=== PATIENT | female | born 1945 | race Caucasian/White ===

== ENCOUNTER 2021-05-22 09:36 | Observation (INO) | payer OTHER, MEDICARE ==
--- OUTSIDE RECORDS SUMMARY | 2021-05-22 09:40 | XMS REPORT | Continuity of Care Document ---
:1945 Author Organization [facility] t Address [address] [place] [address] Care Team Providers Name Role Phone Wang, N Attending Clinician Unavailable Lucia Garcia Attending Clinician Unavailable Wang, Allan Admitting Clinician Unavailable Physician, Primary or Family Admitting Clinician Unavailabl e Payers Payer Name Policy Type Policy Number Effective Date Expiration Date S ource Problems This patient has no known problems. Allergies, Adverse Reactions, Alerts Allergy Allergy Status Severity Reaction(s) Onset Inactive Treating Comm ents Source Name Type Date Date Clinician Sulfa DA Active SV RASH, GI, [facility] (Sulfona HIVES 2-08 [place] [facility] 00:00: [facility] 00 dic ics) [facility] Sulfa DA Active SV RASH, GI, [facility] (Sulfona HIVES 1-07 [place] [facility] 00:00: [place] [facility] 00 Regiona ics) [facility] Medications This patient has no known medications. Procedures Procedure Date / Time Performed Performing Clinician Suma de la torre [id number] 2021-04-25 00:00:00 GOYRO [facility] Or [facility] Encounters Start End Encounter Admission Attending Care Care Encounter Source Date/Time Date/Time Type Type Clinicians Facility Department ID 2021-04-25 2021-04-26 Inpatient EL Wang, HCATO ADMI [id number] [facility] 05:25:00 13:16:00 Nate [id number] [facility] 2021-04-25 2021-04-25 Inpatient EL Wang, HCATO ADMI [id number] [facility] 05:25:00 05:25:00 Nate 68 [facility] 2021-03-24 2021-03-24 Outpatient BRETT DaltonTO 3DAY [id number] [facility] 09:00:00 23:00:00 Nate [id number] [facility] 2021-03-24 2021-03-24 Outpatient BRETT PiñaCL LABO [id number] [facility] 18:12:00 18:12:00 Nate [id number] [facility] 2020-07-12 2020-07-12 Outpatient TRICIA Calderon HCAPM DAYNE [id number] [facility] 12:00:00 12:00:00 [place], [id number] [facility] all[facility] Sanchez [facility] Results Test Description Test Time Test Comments Results Result Comments Source BASIC METABOLIC PANEL 2021-04-26 06:44:00 Test Item Value Reference Range Interpretation Comme nts SODIUM (test code = NA) 142 mmol/L 136-145 N POTASSIUM (test code = K) 4.2 mmol/L 3.5-5.1 N CHLORIDE (test code = CL) 104.0 mmol/L 98-107 N CARBON DIOXIDE (test code = 28.3 mmol/L 21-32 N CO2) GLUCOSE (test code = GLU) 114 mg/dL 70-110 H BLOOD UREA NITROGEN (test code 21 mg/dL 7-18 H = BUN) GLOMERULAR FILTRATION RATE 64.2 >60 U nit of measure: (test code = GFR) mL/min/1.7 3 [id number] Range:Healthy A dults >90 mL/min/1.73 m2 For Chronic Kidney Disease: Stage II Mi ld Decrease in GFR 60-9 0 Stage III Moderate Decrease in GFR 30-59 Stage IV Severe Decrease in GFR 15-29 Stage V Kidney Failure <15 CREATININE (test code = CREAT) 0.86 mg/dL 0.55-1.30 N CALCIUM (test code = CA) 8.5 mg/dL 8.2-10.1 N HGB [id number] 06:00:00 Test Item Value Reference Range Interpretation Comments HEMOGLOBIN (test code = HGB) 12.4 g/dL 12-16 N HEMATOCRIT (test code = HCT) 36.7 % 37-47 L SPECIMEN COMMENT: POD #[id number] 17:08:00 Test Item Value Reference Range Interpretation Comments PROTHROMBIN TIME 11.1 secs 10.1-12.5 N PATIENT (test code = PTP) INTERNATIONAL NORMAL 0.97 <2.0 RECOMME NDED THERAPEUTIC RATIO (test code = RANGE FOR ORAL INR) ANTICOAGULANTTR EATMENT: CONDI TION INRProphylaxis of venous thrombos is in 2.0 - 3.0 high-risk medic al or surgical patientsTreatme nt of venous thrombos is 2.0 - 3.0Prevention o f embolism 2.0 - 3.0Prevention o f recurrent embol ism, or 3.0 - 4. 5 patients with mechanical pros thetic intravascular v avelar IS PATIENT ON ANTICOAGULANTS ? NHas Lab been notified if Patient is on Heparin Drip? NOIf Yes, orderCBC, OCCULT BLOOD, PT every other day NTHROMBOPLASTIN TIME [id number] 17:08:00 Test Item Value Reference Range Interpretation Comments PTT ACTIVATED (test code = APTT) 29.5 secs 24.9-37.0 N IS PATIENT ON ANTICOAGULANTS ? NHas Lab been notified if Patient is on Heparin Drip? NOIf Yes, orderCBC, OCCULT BLOOD, PT every other day NCOMPREHENSIVE METABOLIC [id number] 17:07:00 Test Item Value Reference Range Interpretation Comments SODIUM (test code = 142 mmol/L 136-145 N NA) POTASSIUM (test code = 4.4 mmol/L 3.5-5.1 N K) CHLORIDE (test code = 104.0 mmol/L 98-107 N CL) CARBON DIOXIDE (test 28.1 mmol/L 21-32 N code = CO2) GLUCOSE (test code = 92 mg/dL 70-110 N GLU) BLOOD UREA NITROGEN 21 mg/dL 7-18 H (test code = BUN) GLOMERULAR FILTRATION 64.2 >60 Unit o f measure: RATE (test code = GFR) mL/mi n/1.73 [id number] Range:Healthy Adults >90 mL/min/1.73 m2 For Chronic Kidney Disease: St age II Mild Decrease in GFR 60-90 St age III Moderate Decrease in GFR 30-59 Stage IV Severe Decre ase in GFR 15- 29 Stage V Kidney Failure <15 CREATININE (test code 0.86 mg/dL 0.55-1.30 N = CREAT) TOTAL PROTEIN (test 7.2 g/dL 6.4-8.2 N code = PROT) ALBUMIN (test code = 3.8 g/dL 3.4-5.0 N ALB) GLOBULIN (test code = 3.4 g/dL 2.2-4.2 N GLOB) ALBUMIN/GLOBULIN RATIO 1.1 0.7-2.0 N (test code = A/G) CALCIUM (test code = 9.0 mg/dL 8.2-10.1 N CA) BILIRUBIN TOTAL (test 0.30 mg/dL 0.2-1.00 N code = BILT) SGOT/AST (test code = 30.0 U/L 15-37 N AST) SGPT/ALT (test code = 52.0 U/L 12-78 N Please note new ALT) normal range. ALKALINE PHOSPHATASE 72 U/L 46-116 N TOTAL (test code = ALKP) CBC W/AUTO [id number] 16:32:00 Test Item Value Reference Range Interpretation Comments WHITE BLOOD CELL (test code = WBC) 6.3 K/mm3 5.8-11.0 N RED BLOOD CELL (test code = RBC) 4.54 M/mm3 4.2-5.4 N HEMOGLOBIN (test code = HGB) 13.9 g/dL 12-16 N HEMATOCRIT (test code = HCT) 41.3 % 37-47 N MEAN CELL VOLUME (test code = MCV) 91 fL 80-98 N MEAN CELL HGB (test code = MCH) 30.6 pg 27-34 N MEAN CELL HGB CONCENTRATION (test 33.7 g/dL 30.8-34.1 N code = MCHC) RED CELL DISTRIBUTION WIDTH (test 13.5 % 11-16 N code = RDW) PLT (test code = PLT) 233 K/mm3 130-400 N MEAN PLATELET VOLUME (test code = 10.5 fL 8.9-12.1 N MPV) NEUTROPHIL % (test code = NT%) 61.5 % 45-70 N LYMPHOCYTE % (test code = LY%) 26.0 % 20-40 N MONOCYTE % (test code = MO%) 8.0 % 3-10 N EOSINOPHIL % (test code = EO%) 3.5 % 1-5 N BASOPHIL % (test code = BA%) 0.8 % 0.0-1.1 N NEUTROPHIL # (test code = NT#) 3.85 K/mm3 2.00-7.50 N LYMPHOCYTE # (test code = LY#) 1.63 K/mm3 1.50-4.00 N MONOCYTE # (test code = MO#) 0.50 K/mm3 0.2-0.8 N EOSINOPHIL # (test code = EO#) 0.22 K/mm3 0.04-0.4 N BASOPHIL # (test code = BA#) 0.05 K/mm3 0.02-0.10 N MANUAL DIFF REQUIRED (test code = NO MANUAL DIFF MDIFF) NUCLEATED RED BLOOD CELL (test 0 % 0-0 N code = NRBC)
[2021-05-22 10:48] LABS: SARS-COV-2 RT PCR NEGATIVE (NEGATIVE)
[2021-05-22] MEDS ORDERED: HYDROMORPHONE HCL 1 MG/ML INJ IV PRN (11:58)
[2021-05-22] MEDS ORDERED: LOPERAMIDE HCL 2 MG CAPSULE PO PRN (12:00)
[2021-05-22] MEDS ORDERED: DIPHENHYDRAMINE 25 MG TAB/CAP PO PRN (12:00)
[2021-05-22] MEDS ORDERED: INFLUENZA VACCINE (for 6+ mo) 0.5 ML DOSE IMVAC ONE (12:00)
[2021-05-22] MEDS ORDERED: ONDANSETRON 4 MG (ODT) TAB PO PRN (12:00)
[2021-05-22] MEDS ORDERED: PNEUMOCOCCAL VACCINE 0.5 ML IMVAC ONE (12:00)
[2021-05-22] MEDS ORDERED: POLYETHYL GLY 3350 17 GM/DOSE PO PRN (12:00)
[2021-05-22] MEDS: NACHLORIDE 0.45% 1,000 ML IV SCH (12:07)
[2021-05-22] MEDS: ONDANSETRON 4 MG/2 ML VIAL IV PRN ×2 (12:10→18:39)
[2021-05-22 13:00] VITALS: BMI 33.7
[2021-05-22 13:41] LABS: Absolute Lymphocytes (CBC) 1.2 K/uL (0.7-4.9); Hematocrit 38.8 % (36.0-45.0); Lymphocytes % 19.3 % (15.3-44.8); MPV 7.7 fL (7.6-11.3); RBC Red Blood Cell Count 4.23 M/uL (3.86-4.86)
[2021-05-22 13:49] LABS: Protime INR 1.03
[2021-05-22] MEDS: ACETAMINOPHEN 325 MG TABLET PO PRN (14:09)
[2021-05-22 14:49] LABS: Urine Appearance CLEAR (Clear); Urine Bilirubin NEGATIVE (Negative); Urine Blood NEGATIVE (Negative); Urine Color YELLOW (Yellow); Urine Glucose NEGATIVE (Negative); Urine Protein TRACE (Negative); Urine Specific Gravity >=1.030 (1.005-1.030); Urine Urobilinogen 0.2 mg/dL (0.2-1.0); Urine pH 5.5 (5.0-7.0)
[2021-05-22 14:52] LABS: Urine Microscopic Reflex ORDER UMIC
--- NOTE | 2021-05-22 14:56 | RAD REPORT ---
EXAM DESCRIPTION: MRI - Lumbar Spine Wo Serjio- 05/22/2021 2:43 pm CLINICAL HISTORY: back pain Back pain, radiculopathy COMPARISON: No comparisons FINDINGS: Mild acute- subacute central compression fracture affects L2 vertebral body. There is no p osterior retropulsion or canal stenosis caused by this. No aggressive marrow pattern is observed. The conus medullaris terminates at a normal level. No thickening of the cauda equina or clumping of n erve roots seen. L1-2 level: No significant findings. L2-3 level: No significant findings. L3-4 level: Minimal posterior disc bulge with mild facet and ligamentum flavum hypertrophy. L4-5 level: Mild posterior disc bulge with mild facet and ligamentum flavum hypertrophy. L5-S1 level: No significant findings. IMPRESSION: Mild acute to subacute time frame central compression fracture affects L2 vertebral body . Loss of vertebral body height is estimated at 10%. There is no retropulsion or canal compromise see n.
[2021-05-22 15:00] LABS: Urine Bacteria <20 /HPF (<20); Urine Mucus 1+ /HPF (NONE SEEN); Urine RBC <5 /HPF (NONE SEEN)
--- NOTE | 2021-05-22 15:11 | RAD REPORT ---
EXAM DESCRIPTION: CTAbdomen Pelvis W Contrast - 05/22/2021 3:01 pm CLINICAL HISTORY: Abdominal pain. abdominal pain COMPARISON: Abdomen Pelvis W Contrast dated 09/24/2017 TECHNIQUE: Biphasic CT imaging of the abdomen and pelvis was performed with 100 ml non-ionic IV cont rast. All CT scans are performed using dose optimization technique as appropriate and may include automated exposure control or mA/KV adjustment according to patient size. FINDINGS: Linear atelectasis is present in both posterior lung bases.Small hiatal hernia. The liver, spleen, pancreas, adrenal glands and kidneys are within normal limits. No bowel obstruction, free air, free fluid or abscess. Sigmoid diverticulosis coli is present without diverticulitis. The appendix is normal. Small fat containing umbilical hernia. No evidence of signif icant lymphadenopathy. Mild central compression deformity noted L2 vertebral body. IMPRESSION: Mild central compression deformity L2 vertebral body. Sigmoid diverticulosis coli without diverticulitis. Small fat containing umbilical hernia.
[2021-05-22] MEDS: HYDROMORPHONE HCL 2 MG/ML inj IV PRN ×2 (15:18→18:21)
--- NOTE | 2021-05-22 15:20 | RAD REPORT ---
EXAM DESCRIPTION: RAD - Chest Pa And Lat (2 Views) - 05/22/2021 3:12 pm CLINICAL HISTORY: back/abdomen pain Chest pain. COMPARISON: Chest Pa And Lat (2 Views) dated 07/18/2020 FINDINGS: The lungs are hyperexpanded but clear. The heart is moderately enlarged in size. No displa ana luisa fractures. Changes of DISH affect the thoracic spine.
[2021-05-22 15:54] LABS: Albumin 3.8 g/dL (3.4-5.0); Bilirubin Direct 0.2 mg/dL (0-0.2); Bilirubin Total 0.5 mg/dL (0.2-1.0); Magnesium 2.4 mg/dL (1.8-2.4); Phosphorus 2.7 mg/dL (2.5-4.9); Potassium 3.5 mmol/L (3.5-5.1); Protein, Total 7.7 g/dL (6.4-8.2); Thyroid Stimulating Hormone 2.18 uIU/mL (0.360-3.740)
[2021-05-22] MEDS ORDERED: POTASSIUM CL SA 10 MEQ TAB PO ONE (17:00)
[2021-05-22] MEDS ORDERED: PROMETHAZINE INJ 25 MG/ML AMP IV ONE (20:28)
[2021-05-22] MEDS: CIPROFLOXACIN HCL 500 MG TAB PO SCH (21:00)
[2021-05-22] MEDS ORDERED: CIPROFLOXACIN HCL 500 MG TAB PO SCH (21:00)
[2021-05-23 05:49] LABS: Absolute Lymphocytes (CBC) 1.2 K/uL (0.7-4.9); Hematocrit 34.9 % (36.0-45.0); MPV 7.8 fL (7.6-11.3); RBC Red Blood Cell Count 3.77 M/uL (3.86-4.86)
[2021-05-23 06:01] LABS: Magnesium 2.5 mg/dL (1.8-2.4); Potassium 4.2 mmol/L (3.5-5.1)
[2021-05-23] MEDS: NACHLORIDE 0.45% 1,000 ML IV SCH ×2 (06:15→06:17)
[2021-05-23] MEDS ORDERED: LEVOTHYROXINE SOD 0.025 MG TAB PO SCH (06:30)
[2021-05-23 07:50] VITALS: O2SAT 98
[2021-05-23 08:31] VITALS: BP 140/74; TEMP 98.4
[2021-05-23] MEDS ORDERED: ENOXAPARIN 40 MG/0.4 ML SQ SCH (09:00)
[2021-05-23] MEDS: CIPROFLOXACIN HCL 500 MG TAB PO SCH (09:42)
[2021-05-23] MEDS: ACETAMINOPHEN 325 MG TABLET PO PRN (09:45)
--- NOTE | 2021-05-23 21:27 | P.DS ---
Admission Date: 05/22/21 Discharge Date: 05/23/21 Disposition: ROUTINE DISCHARGE Discharge Condition: GOOD Hospital Course: REID HAS SEVERE PAIN FROM L2 FRACTURE. SHE NEVER FELL. HER BONE DENSITY SHOWS OSTEOPENIA. SHE HAD RECENT KNEE SURGERY AND SINCE THEN SHE HAS SEVERE LOWER SPINE PAIN. I TALKED TO HER AND DR. Fernandez. HER DAUGHTER WHO IS A DENTIST. I ADVISE KYPHOPLASTY IF PAIN CONTINUES. THEY HAVE DECIDED TO GO TO [facility]. HER PAIN IS LOT BETTER WITH BED REST, IV DILAUDID. SHE IS ABLE TO WALK WITH WALKER. SHE IS STABLE FOR HOME. I SENT MARTHA AND AKI AT PHARMACY. Vital Signs/Physical Exam: Temp Pulse Resp BP Pulse Ox 98.4 F 74 18 140/74 95 05/23/21 08:00 05/23/21 08:00 05/23/21 08:00 05/23/21 08:00 05/23/21 08:00 Laboratory Data at Discharge: WBC 4.90 K/uL (4.3-10.9) D 05/23/21 05:23 Hgb 11.9 g/dL (12.0-15.0) L 05/23/21 05:23 Hct 34.9 % (36.0-45.0) L 05/23/21 05:23 Plt Count 198 K/uL (152-406) 05/23/21 05:23 PT 11.9 SECONDS (9.5-12.5) 05/22/21 13:28 INR 1.03 05/22/21 13:28 APTT 26.9 SECONDS (24.3-36.9) 05/22/21 13:28 Sodium 137 mmol/L (136-145) 05/23/21 05:23 Potassium 4.2 mmol/L (3.5-5.1) 05/23/21 05:23 BUN 13 mg/dL (7-18) 05/23/21 05:23 Creatinine 0.73 mg/dL (0.55-1.3) 05/23/21 05:23 Glucose 90 mg/dL (74-106) 05/23/21 05:23 Phosphorus 2.7 mg/dL (2.5-4.9) 05/22/21 13:28 Magnesium 2.5 mg/dL (1.8-2.4) H 05/23/21 05:23 Total Bilirubin 0.5 mg/dL (0.2-1.0) 05/22/21 13:28 AST 28 U/L (15-37) 05/22/21 13:28 ALT 30 U/L (12-78) 05/22/21 13:28 Alkaline Phosphatase 77 U/L (45-117) 05/22/21 13:28 Home Medications: Ciprofloxacin HCl [Cipro 500 MG Tablet] 500 mg PO BID 05/22/21 Levothyroxine Sodium [Levothyroxine] 25 mcg PO DAILY 05/22/21 Followup: Davy Hinds MD [ACTIVE - CAN ADMIT] -
--- NOTE | 2021-05-24 12:57 | EKG ---
Test Date: 2021-05-22 Test Time: 12:56:05 Contact Lens Assistant: LILIYA MEASUREMENT RESULTS: Intervals: Rate: 70 NM: 162 QRSD: 94 QT: 394 QTc: 425 Dahlgren: P: 29 NM: 162 QRS: 9 T: 32 INTERPRETIVE STATEMENTS: Normal sinus rhythm Moderate voltage criteria for LVH, may be normal variant Borderline ECG No previous ECG available for comparison Electronically Signed On 05-24-21 12:52:29 [employer] by Vazquez Purcell
== END 2021-05-23 11:45 | disposition home or self-care (01) ==
LOC: 2ND 09:36 → INTOOBSV 09:36
PROVIDERS: ADMIT Internal Medicine; ATTEND Internal Medicine
DX: M84.48XS Pathological fracture, other site, sequela (principal); M54.50 Low back pain, unspecified; M85.80 Other specified disorders of bone density and structure, unspecified site; R10.9 Unspecified abdominal pain; Z98.890 Other specified postprocedural states; Z20.822 Contact with and (suspected) exposure to COVID-19
CPT/HCPCS: 93005; 85025 ×2; 80048 ×2; 36415; 83735 ×2; 84100; 85610; 80076; 85730; 84443; 82607; 82306; 0240U; 74177; 71046; 72148; Q9967; J2550; J1650; J1170 ×3; J2405 ×2; G0379; G0378 ×2; 81003; 81015